=== PATIENT | female | born 1950 | race Caucasian/White ===

== ENCOUNTER → 2017-08-15 | Outpatient (CLI) | payer BC ==
--- NOTE | 2017-08-16 14:57 | MAMMOGRAPHY REPORT ---
BILATERAL DIGITAL SCREENING MAMMOGRAM TOMOSYNTHESIS WITH CAD: 08/15/2017 CLINICAL HISTORY: Routine screening. TECHNIQUE: Breast tomosynthesis in addition to standard 2D mammography was performed. Current study was also evaluated with a Computer Aided Detection (CAD) system. COMPARISON: Comparison is made to exams dated: 08/26/2016 mammogram, 08/12/2016 mammogram, 08/10/2015 mammogram, 08/05/2014 mammogram, 08/02/2013 mammogram, and 08/01/2012 mammogram - [facility]. BREAST COMPOSITION: There are scattered areas of fibroglandular density in both breasts. FINDINGS: A lobulated mass in the 8:00 middle one third of the right breast has decreased in size, cu rrently measuring 11 mm, previously documented to represent a cyst cluster on ultrasound. There is s table asymmetry in the medial right breast. Scattered benign round, punctate and rim calcifications in the breasts. Stable asymmetry in the lateral left breast. No new suspicious mass, architectural distortion or cluster of microcalcifications is seen. IMPRESSION: ACR BI-RADS CATEGORY 1: NEGATIVE There is no mammographic evidence of malignancy. A 1 year screening mammogram is recommended. The pa tient will receive written notification of the results. Approximately 10% of breast cancers are not detected with mammography. A negative mammographic report should not delay biopsy if a clinically suggestive mass is present. Violet Dietz M.D. ay/:08/15/2017 16:10:57 Street Car Inspector: Christiane MAHER(Desire)(Arielle), [facility] letter sent: Normal 1/2 BI-RADS Code: ACR BI-RADS Category 1: Negative
== END | disposition home or self-care (01) ==
LOC: C.MAMM 10:29
PROVIDERS: ATTEND Physician Assistant
DX: Z12.31 Encounter for screening mammogram for malignant neoplasm of breast (principal)

== ENCOUNTER 2022-12-14 12:33 | Inpatient (IN) ==
--- NOTE | 2022-12-14 13:09 | Emergency Department Note ---
Impression & Plan Bilateral pulmonary embolism, Elevated troponin ED Provider Note NAME: SALIMA WALKER AGE: 71 SEX: F : 1950 ARRIVES VIA: Walk-In INFORMANT: Patient ED PROVIDER(S): Chase Mcfarland DO CHIEF COMPLAINT: Shortness of breath HPI: Patient is a 71-year-old female who presents ER for shortness of breath referred in by PCP for chest x-ray which was concerning for pericardial effusion. Patient notes that she has chronic back pain has been following up. She wanted to follow-up with PCP for shortness of breath which has been present since Monday. On Monday she had a chest x-ray. She was sent in today. Denies any headache or change in vision. Does have shortness of breath which is only exertional. No belly pain, nausea, vomiting, or diarrhea. No dysuria, urgency, or frequency. She has chronic back pain which has been present for years. PAST MEDICAL HISTORY:See Below PAST SURGICAL HISTORY:See Below FAMILY HISTORY:See Below SOCIAL HISTORY:See Below HOME MEDICATIONS:See Below ALLERGIES:See Below VITALS:See Below PHYSICAL EXAMINATION: GENERAL: Sitting up in bed, alert, well appearing, well nourished, no distress, non-toxic EYE EXAM: normal conjunctiva. OROPHARYNX: mucous membranes are moist NECK: supple, no nuchal rigidity, no adenopathy, non-tender LUNGS: Clear to auscultation. Normal chest wall mechanics HEART: no murmurs, S1 normal and S2 normal ABDOMEN: abdomen soft, non-tender, normo-active bowel sounds, no masses, no rebound or guarding. UPPER EXTREMITIES: upper extremities are grossly normal. LOWER EXTREMITIES: No pitting edema. Calves are equal bilateral NEURO EXAM: Normal sensorium, cranial nerves II-XII grossly intact, normal speech, no gross weakness of arms, no gross weakness of legs. MEDICAL DECISION MAKING: Patient is a 71-year-old female who presents ER for above-stated complaint. IV was established blood work was obtained. External records were reviewed. Labs show no significant leukocytosis or anemia. INR unremarkable. D-dimer was elevated at 4000. BMP along with LFTs bilirubin and lipase was unremarkable. Troponin was elevated at 564. CT angio of the chest shows bilateral PEs. Patient was updated at bedside. She has no other bleeding risk factors. Discussed the risk and benefits of heparin. Did order heparin. Discussed case with Dr. Scotty Rawls for further evaluation management and treatment. Patient was admitted for further work-up. She was monitored closely. Triage Nursing notes reviewed. Limited review of prior medical records performed Vital Signs: reviewed and remarkable for no significant abnormalities Differential diagnosis: Differential diagnoses includes but is not limited to pneumonia, bronchitis, COPD/Asthma exacerbation, pneumothorax, pulmonary embolism, congestive heart failure, acute coronary syndrome ER treatment provided: See below Diagnostics interpreted by me include EKG and cardiac monitoring as listed below: -Cardiac Monitoring: An order was placed for continuous cardiac monitoring. The monitor shows a rate of 72 with sinus rhythm. -ECG: Sinus rhythm rate 83 Left axis T wave inversions in V3 through V5 Inferior Q waves QTc 462 -Laboratory studies:Interpreted by me as stated above in MDM and shown below. Imaging studies: Xrays: As interpreted by me: Portable AP upright 1 view of the chest shows no pneumonia CTs show: CT angio of the chest per my read shows bilateral PEs Consultation(s): Discussed with Dr. Scotty Rawls for further evaluation management Procedures:none Critical Care: I have personally spent 32 minutes of critical care time in the direct management of this patient. This includes bedside care, interpretation of diagnostic studies, and testing, discussion with consultants, patient, and family members, and other required patient management activities. This 32 minutes is in excess of all separately billable procedures. Past Med/Surg History Medical History (Updated 12/14/22 @ 16:43 by Scotty Rawls MD) Chronic back pain Hypertension Morbid obesity with BMI of 50.0-59.9, adult Surgical History (Updated 11/23/22 @ 09:22 by Lindy Paredes PA-C) H/O: hysterectomy History of cholecystectomy Social History Smoking Status: Never smoker Preferred Language: Bots[place] Feels Safe at Home: Yes Allergies Allergies Allergy/AdvReac Type Severity Reaction Status Date / Time shellfish derived AdvReac Intermediate Sneezing Verified 12/14/22 15:31 Home Meds Home Medications Medication Instructions Recorded Confirmed atorvastatin 20 mg tablet 20 mg PO QPM 11/23/22 12/14/22 calcium carbonate 500 mg-vitamin 1 tab PO BID 11/23/22 12/14/22 D3 15 mcg (600 unit) tablet (Os-Lam 500 + D3) furosemide 40 mg tablet (Lasix) 40 mg PO QAM 11/23/22 12/14/22 lisinopril 5 mg tablet 5 mg PO QAM 11/23/22 12/14/22 potassium chloride 10 mEq 10 meq PO QAM 11/23/22 12/14/22 tablet,extended release ibuprofen 200 mg tablet 400 - 600 mg PO Q6H PRN Pain 12/14/22 12/14/22 Results & Data (ED) Vital Signs Vital Signs - 24 hr 12/14/22 12:35 12/14/22 13:00 12/14/22 13:00 Temperature 36.6 C Temperature Source Temporal Artery Scan Pulse Rate Pulse Rate [Apical] 70 Pulse Rate from SpO2 Sensor Respiratory Rate 15 Respiratory Effort / Characteristics Non-Labored Spontaneous Respiratory Depth Normal Normal Respiratory Pattern Regular Regular Blood Pressure Blood Pressure [Left Arm] 129/93 Blood Pressure Mean Blood Pressure Mean [Left Arm] 105 Pulse Oximetry 91 Oxygen Delivery Method Room Air Room Air Oxygen Flow Rate Sepsis Recent Fever Within 48 Hours No Sepsis New/Unexplained Change in Mental Status N/A Sepsis Action Taken by Nursing No Action Required Oxygen Flow Rate - Titration Pulse Oximetry Post Tiitration 12/14/22 13:00 12/14/22 13:09 12/14/22 13:20 Temperature Temperature Source Pulse Rate 77 Pulse Rate [Apical] Pulse Rate from SpO2 Sensor Respiratory Rate Respiratory Effort / Characteristics Respiratory Depth Respiratory Pattern Blood Pressure Blood Pressure [Left Arm] Blood Pressure Mean Blood Pressure Mean [Left Arm] Pulse Oximetry 91 95 Oxygen Delivery Method Room Air Nasal Cannula Oxygen Flow Rate 0 2 Sepsis Recent Fever Within 48 Hours Sepsis New/Unexplained Change in Mental Status Sepsis Action Taken by Nursing Oxygen Flow Rate - Titration 2 Pulse Oximetry Post Tiitration 95 12/14/22 13:06 12/14/22 13:10 12/14/22 13:20 Temperature Temperature Source Pulse Rate 75 72 Pulse Rate [Apical] Pulse Rate from SpO2 Sensor 81 76 70 Respiratory Rate 13 13 12 Respiratory Effort / Characteristics Respiratory Depth Respiratory Pattern Blood Pressure Blood Pressure [Left Arm] Blood Pressure Mean Blood Pressure Mean [Left Arm] Pulse Oximetry 89 L 95 95 Oxygen Delivery Method Room Air Nasal Cannula Oxygen Flow Rate 2 Sepsis Recent Fever Within 48 Hours Sepsis New/Unexplained Change in Mental Status Sepsis Action Taken by Nursing Oxygen Flow Rate - Titration Pulse Oximetry Post Tiitration 12/14/22 13:30 12/14/22 13:40 12/14/22 13:50 Temperature Temperature Source Pulse Rate 71 70 74 Pulse Rate [Apical] Pulse Rate from SpO2 Sensor 72 81 74 Respiratory Rate 17 17 15 Respiratory Effort / Characteristics Respiratory Depth Respiratory Pattern Blood Pressure Blood Pressure [Left Arm] Blood Pressure Mean Blood Pressure Mean [Left Arm] Pulse Oximetry 93 93 94 Oxygen Delivery Method Room Air Oxygen Flow Rate Sepsis Recent Fever Within 48 Hours Sepsis New/Unexplained Change in Mental Status Sepsis Action Taken by Nursing Oxygen Flow Rate - Titration Pulse Oximetry Post Tiitration 12/14/22 14:00 12/14/22 14:10 12/14/22 14:20 Temperature Temperature Source Pulse Rate 72 73 71 Pulse Rate [Apical] Pulse Rate from SpO2 Sensor 73 75 76 Respiratory Rate 13 19 14 Respiratory Effort / Characteristics Respiratory Depth Respiratory Pattern Blood Pressure Blood Pressure [Left Arm] Blood Pressure Mean Blood Pressure Mean [Left Arm] Pulse Oximetry 94 92 94 Oxygen Delivery Method Oxygen Flow Rate Sepsis Recent Fever Within 48 Hours Sepsis New/Unexplained Change in Mental Status Sepsis Action Taken by Nursing Oxygen Flow Rate - Titration Pulse Oximetry Post Tiitration 12/14/22 14:30 12/14/22 14:30 12/14/22 14:57 Temperature Temperature Source Pulse Rate 107 H 0 L Pulse Rate [Apical] Pulse Rate from SpO2 Sensor 84 Respiratory Rate 16 18 Respiratory Effort / Characteristics Respiratory Depth Respiratory Pattern Blood Pressure 126/93 Blood Pressure [Left Arm] Blood Pressure Mean 104 Blood Pressure Mean [Left Arm] Pulse Oximetry 94 Oxygen Delivery Method Nasal Cannula Oxygen Flow Rate 2 Sepsis Recent Fever Within 48 Hours Sepsis New/Unexplained Change in Mental Status Sepsis Action Taken by Nursing Oxygen Flow Rate - Titration Pulse Oximetry Post Tiitration 12/14/22 15:00 12/14/22 15:00 Temperature Temperature Source Pulse Rate 62 Pulse Rate [Apical] Pulse Rate from SpO2 Sensor 82 Respiratory Rate 17 Respiratory Effort / Characteristics Respiratory Depth Respiratory Pattern Blood Pressure 121/80 Blood Pressure [Left Arm] Blood Pressure Mean 93 Blood Pressure Mean [Left Arm] Pulse Oximetry 95 Oxygen Delivery Method Nasal Cannula Oxygen Flow Rate 2 Sepsis Recent Fever Within 48 Hours Sepsis New/Unexplained Change in Mental Status Sepsis Action Taken by Nursing Oxygen Flow Rate - Titration Pulse Oximetry Post Tiitration Laboratory Data 12/14/22 12:50 12/14/22 12:50 Lab Results 12/14/22 12/14/22 12/14/22 Range/Units 12:50 12:50 12:50 WBC 9.72 (4.8-10.8) K/ul RBC 4.70 (4.20-5.40) M/uL Hgb 14.9 (12.0-16.0) g/dl Hct 43.4 (37.0-47.0) % MCV 92.3 (80.0-100.0) fL MCH 31.7 (25.0-34.0) pg MCHC 34.3 (32.0-36.0) g/dL RDW Std Deviation 43.3 (36.4-46.3) fL RDW Coeff of Megan 12.7 (11.5-14.5) % Plt Count 217 (130-400) K/uL MPV 10.7 (9.4-12.4) fL Immature Gran % (Auto) 0.4 % Neut % (Auto) 64.5 % Lymph % (Auto) 28.3 % Ponce % (Auto) 5.0 % Eos % (Auto) 1.2 % Baso % (Auto) 0.6 % Neut # (Auto) 6.26 (1.40-6.50) K/uL Lymph # (Auto) 2.75 (1.2-3.4) K/uL Ponce # (Auto) 0.49 (0.11-0.59) K/uL Eos # (Auto) 0.12 (0-0.50) K/uL Baso # (Auto) 0.06 (0-0.2) K/uL Immature Gran # (Auto) 0.04 (0.01-0.20) K/uL PT (9.0-12.0) Seconds INR (0.9-1.1) APTT (21.0-31.0) Seconds PTT Ratio D-Dimer 4380 H* (0-500) ug/L FEU Sodium 139 (136-145) mmol/L Potassium 4.0 (3.5-5.1) mmol/L Chloride 104 (98-107) mmol/L Carbon Dioxide 27 (21-32) mmol/L Anion Gap 8 (3-11) BUN 18 (6-23) mg/dl Creatinine 1.00 (0.6-1.2) mg/dl Est Cr Clr Drug Dosing 75.3 ml/min Est GFR ( Amer) 64.7 ml/min Est GFR (Non-Af Amer) 55.8 ml/min BUN/Creatinine Ratio 18.0 (10-20) Glucose 104 H (70-99(Fasting)) mg/dl Calcium 9.6 (8.6-10.3) mg/dl Total Bilirubin 0.9 (0.2-1.0) mg/dl AST 25 (13-39) U/L ALT 29 (7-52) U/L Alkaline Phosphatase 67 (34-104) U/L Troponin I High Sens 564.2 H* (0-14) pg/ml Total Protein 7.0 (6.0-8.3) gm/dl Albumin 4.3 (3.4-5.0) gm/dl Globulin 2.7 (2.5-4.0) gm/dl Albumin/Globulin Ratio 1.6 (0.9-2) Lipase 18 (11-82) U/L 12/14/22 12/14/22 Range/Units 12:50 15:21 WBC (4.8-10.8) K/ul RBC (4.20-5.40) M/uL Hgb (12.0-16.0) g/dl Hct (37.0-47.0) % MCV (80.0-100.0) fL MCH (25.0-34.0) pg MCHC (32.0-36.0) g/dL RDW Std Deviation (36.4-46.3) fL RDW Coeff of Megan (11.5-14.5) % Plt Count (130-400) K/uL MPV (9.4-12.4) fL Immature Gran % (Auto) % Neut % (Auto) % Lymph % (Auto) % Ponce % (Auto) % Eos % (Auto) % Baso % (Auto) % Neut # (Auto) (1.40-6.50) K/uL Lymph # (Auto) (1.2-3.4) K/uL Ponce # (Auto) (0.11-0.59) K/uL Eos # (Auto) (0-0.50) K/uL Baso # (Auto) (0-0.2) K/uL Immature Gran # (Auto) (0.01-0.20) K/uL PT 10.6 (9.0-12.0) Seconds INR 1.0 (0.9-1.1) APTT 25.9 (21.0-31.0) Seconds PTT Ratio 0.9 D-Dimer (0-500) ug/L FEU Sodium (136-145) mmol/L Potassium (3.5-5.1) mmol/L Chloride (98-107) mmol/L Carbon Dioxide (21-32) mmol/L Anion Gap (3-11) BUN (6-23) mg/dl Creatinine (0.6-1.2) mg/dl Est Cr Clr Drug Dosing ml/min Est GFR ( Amer) ml/min Est GFR (Non-Af Amer) ml/min BUN/Creatinine Ratio (10-20) Glucose (70-99(Fasting)) mg/dl Calcium (8.6-10.3) mg/dl Total Bilirubin (0.2-1.0) mg/dl AST (13-39) U/L ALT (7-52) U/L Alkaline Phosphatase (34-104) U/L Troponin I High Sens (0-14) pg/ml Total Protein (6.0-8.3) gm/dl Albumin (3.4-5.0) gm/dl Globulin (2.5-4.0) gm/dl Albumin/Globulin Ratio (0.9-2) Lipase (11-82) U/L Administered Medications Heparin Sodium/Dextrose (Heparin Sodium/Dextrose) 25,000 units in 500 mls @ 34 mls/hr IV .[id number] [facility]; Protocol Stop: 01/13/23 15:29 Last Admin: 12/14/22 16:47 Dose: 1,700 units/hr, 34 mls/hr Documented By: OUSMANE Co-signed By: Discontinued Medications Aspirin (Aspirin Chew 324 Mg) 324 mg PO NOW STA Stop: 12/14/22 14:18 Last Admin: 12/14/22 14:29 Dose: 324 mg Documented By: OUSMANE Heparin Sodium (Porcine) (Heparin Sod (Porcine) 1000 Unit/Ml) 8,000 units IV NOW ONE Stop: 12/14/22 15:19 Last Admin: 12/14/22 16:49 Dose: 8,000 units Documented By: OUSMANE Co-signed By: PLACIDO Ioversol (Optiray 320 500ml) 115 ml IV ONCE ONE Stop: 12/14/22 14:51 Last Admin: 12/14/22 14:50 Dose: 115 ml Documented By: HUMZA Methylprednisolone (Methylprednisolone 125 Mg/2 Ml Vial) 125 mg IV NOW STA Stop: 12/14/22 14:19 Last Admin: 12/14/22 14:30 Dose: 125 mg Documented By: OUSMANE Imaging Data Radiologist's Impression: Chest X-Ray 12/14/22 13:08 SINGLE VIEW CHEST CLINICAL HISTORY: Atypical chest pain FINDINGS: An AP, portable, upright chest radiograph is obtained. No prior studies are available for comparison at the time of dictation. The cardiomediastinal silhouette is top normal for projection. The lungs and pleural spaces are clear. No pneumothorax is seen. The skeletal structures are osteopenic. The bony thorax is grossly intact. IMPRESSION: No acute cardiopulmonary abnormality is identified. ACT 112: Negative or not required by law. Electronically signed by: Rishi Gunter M.D. 12/14/2022 1:44 PM Chest CTA 12/14/22 14:17 CT ANGIOGRAPHY OF THE CHEST, PULMONARY EMBOLUS PROTOCOL CLINICAL HISTORY: +dd and troponin. Shortness of breath. COMPARISON STUDY: Chest radiograph performed earlier today. TECHNIQUE: Following IV administration of 115 mL of Optiray, helical axial images of the chest were obtained utilizing the pulmonary embolus protocol. Maximal intensity projections and sagittal and coronal reformats were viewed on an independent 3D workstation. IV contrast was administered without complication. Automated exposure control was utilized for the study. A dose lowering technique was utilized adhering to the principles of ALARA. CT DOSE: 907.48 mGy.cm FINDINGS: There are extensive bilateral pulmonary emboli, including emboli within the right and left pulmonary arteries. Emboli within the right pulmonary artery are nearly occlusive. Additional lobar, segmental and subsegmental pulmonary emboli within the lungs are present. There is no saddle pulmonary embolus. There is dilatation of the right heart chambers with straightening of the interventricular septum. The heart is mildly enlarged. There is no pericardial effusion. No pulmonary infarct is present. Lungs are suboptimally assessed due to respiratory motion. Note is made of a round 1.2 x 1.2 cm anterior mediastinal nodule. Upper abdomen is unremarkable. Doppler surgically absent. There is a probable sebaceous cyst within the back. IMPRESSION: 1. Extensive bilateral pulmonary emboli, as detailed above. CT findings suggestive of associated right heart strain. No pulmonary infarct. Findings discussed with Dr. Mcfarland at time of dictation. 2. 1.2 cm intermediate nodule. This may represent a mildly enlarged lymph node. A small anterior mediastinal mass could appear similar. This is not highly suspicious but is indeterminate and a follow-up chest CT in 6 months to ensure stability is recommended. ACT 112: Positive. There are findings on this exam that require communication between the performing entity and the patient following Patient Test Result Information Act ([place] Act 112) guidelines. Electronically signed by: Buzz Schreiber M.D. 12/14/2022 3:22 PM Discharge Plan Visit Data Chief Complaint: Shortness of Breath/Dyspnea Stated Complaint: SOB, LAB WORK ABNORMAL, RETAINING FLUID ED Provider: Chase Mcfarland Discharge Problem: Bilateral pulmonary embolism, Elevated troponin Forms Stand Alone Forms: [facility] [employer] 2000 Prescriptions Prescriptions: No Action furosemide [Lasix] 40 mg tablet 40 mg PO QAM potassium chloride 10 mEq tablet extended release 10 meq PO QAM calcium carbonate-vitamin D3 [Os-Lam 500 + D3] 500 mg-15 mcg (600 unit) tablet 1 tab PO BID lisinopril 5 mg tablet 5 mg PO QAM atorvastatin 20 mg tablet 20 mg PO QPM ibuprofen 200 mg Tablet 400 - 600 mg PO Q6H PRN (Reason: Pain) Referrals Referrals: Mann Moon, [facility] [Primary Care Provider] -
[2022-12-14 13:44] LABS: Basophils # (auto) 0.06 K/uL (0-0.2); Basophils % (auto) 0.6 %; Eosinophils # (auto) 0.12 K/uL (0-0.50); Eosinophils % (auto) 1.2 %; Hematocrit (blood only) 43.4 % (37.0-47.0); Hemoglobin 14.9 g/dl (12.0-16.0); Immature Granulocytes # (auto) 0.04 K/uL (0.01-0.20); Immature Granulocytes % (auto) 0.4 %; Lymphocytes # (auto) 2.75 K/uL (1.2-3.4); Lymphocytes % (auto) 28.3 %; Mean Corpuscular Hemoglobin 31.7 pg (25.0-34.0); Mean Corpuscular Hgb Conc 34.3 g/dL (32.0-36.0); Mean Corpuscular Volume 92.3 fL (80.0-100.0); Mean Platelet Volume 10.7 fL (9.4-12.4); Monocytes # (auto) 0.49 K/uL (0.11-0.59); Neutrophils # (auto) 6.26 K/uL (1.40-6.50); Neutrophils % (auto) 64.5 %; Platelet Count 217 K/uL (130-400); RDW Coefficient of Variation 12.7 % (11.5-14.5); RDW Standard Deviation 43.3 fL (36.4-46.3); White Blood Count 9.72 K/ul (4.8-10.8)
--- NOTE | 2022-12-14 13:45 | XRay Report ---
SINGLE VIEW CHEST CLINICAL HISTORY: Atypical chest pain FINDINGS: An AP, portable, upright chest radiograph is obtained. No prior studies are available for c omparison at the time of dictation. The cardiomediastinal silhouette is top normal for projection. Th e lungs and pleural spaces are clear. No pneumothorax is seen. The skeletal structures are osteopenic . The bony thorax is grossly intact. IMPRESSION: No acute cardiopulmonary abnormality is identified. ACT 112: Negative or not required by law. Electronically signed by: Rishi Gunter M.D. 12/14/2022 1:44 PM
[2022-12-14 14:05] LABS: Albumin Globulin Ratio 1.6 (0.9-2); Albumin Level 4.3 gm/dl (3.4-5.0); Bilirubin,Total 0.9 mg/dl (0.2-1.0); Calcium 9.6 mg/dl (8.6-10.3); Creatinine Clr Calc Pharmacy 75.3 ml/min; Est GFR (African American) 64.7 ml/min; Est GFR (Non-African American) 55.8 ml/min; Globulin 2.7 gm/dl (2.5-4.0)
[2022-12-14 14:09] LABS: D Dimer 4380 ug/L FEU (0-500)
[2022-12-14 14:12] LABS: Troponin I High Sensitivity 564.2 pg/ml (0-14)
[2022-12-14] MEDS ORDERED: ASPIRIN CHEW 324 MG PO STA (14:17)
[2022-12-14] MEDS ORDERED: methylPREDNISolone 125 MG/2 ML VIAL IV STA (14:18)
[2022-12-14] MEDS ORDERED: OPTIRAY 320 500ml IV ONE (14:50)
[2022-12-14] MEDS ORDERED: Heparin IV Adult Wt-Based Standard WITH Bolus Protocol IV STA (15:03)
--- NOTE | 2022-12-14 15:12 | Electrocardiogram Report ---
Test Reason : Blood Pressure : / mmHG Vent. Rate : 083 BPM Atrial Rate : 083 BPM P-R Int : 164 ms QRS Dur : 086 ms QT Int : 394 ms P-R-T Axes : 000 -25 003 degrees QTc Int : 462 ms Normal sinus rhythm Low voltage QRS Inferior infarct , age undetermined Cannot rule out Anterior infarct , age undetermined Abnormal ECG No previous ECGs available Confirmed by Deyvi Gaffney ([id number]) on 12/14/2022 3:12:23 PM Referred By: Confirmed By:Deyvi Gaffney
[2022-12-14] MEDS ORDERED: Heparin IV Adult Wt-Based Standard WITH Bolus Protocol IV SCH (15:15)
[2022-12-14] MEDS ORDERED: HEPARIN SOD (PORCINE) 1000 UNIT/ML IV ONE ×2 (15:18)
--- NOTE | 2022-12-14 15:23 | CT Scan Report ---
CT ANGIOGRAPHY OF THE CHEST, PULMONARY EMBOLUS PROTOCOL CLINICAL HISTORY: +dd and troponin. Shortness of breath. COMPARISON STUDY: Chest radiograph performed earlier today. TECHNIQUE: Following IV administration of 115 mL of Optiray, helical axial images of the chest were o btained utilizing the pulmonary embolus protocol. Maximal intensity projections and sagittal and cor onal reformats were viewed on an independent 3D workstation. IV contrast was administered without co mplication. Automated exposure control was utilized for the study. A dose lowering technique was ut ilized adhering to the principles of ALARA. CT DOSE: 907.48 mGy.cm FINDINGS: There are extensive bilateral pulmonary emboli, including emboli within the right and left pulmonary arteries. Emboli within the right pulmonary artery are nearly occlusive. Additional lobar, segmental and subsegmental pulmonary emboli within the lungs are present. There is no saddle pulmona ry embolus. There is dilatation of the right heart chambers with straightening of the interventricula r septum. The heart is mildly enlarged. There is no pericardial effusion. No pulmonary infarct is pre sent. Lungs are suboptimally assessed due to respiratory motion. Note is made of a round 1.2 x 1.2 cm anterior mediastinal nodule. Upper abdomen is unremarkable. Doppler surgically absent. There is a pr obable sebaceous cyst within the back. IMPRESSION: 1. Extensive bilateral pulmonary emboli, as detailed above. CT findings suggestive of associated righ t heart strain. No pulmonary infarct. Findings discussed with Dr. Mcfarland at time of dictation. 2. 1.2 cm intermediate nodule. This may represent a mildly enlarged lymph node. A small anterior medi astinal mass could appear similar. This is not highly suspicious but is indeterminate and a follow-up chest CT in 6 months to ensure stability is recommended. ACT 112: Positive. There are findings on this exam that require communication between the performing entity and the patient following Patient Test Result Information Act ([place] Act 112) guidelines. Electronically signed by: Buzz Schreiber M.D. 12/14/2022 3:22 PM
[2022-12-14 15:32] LABS: Partial Thromboplastin Ratio 0.9; Partial Thromboplastin Time 25.9 Seconds (21.0-31.0)
--- NOTE | 2022-12-14 16:22 | History & Physical Report ---
Date of Service December 14, 2022 Assessment & Plan (1) Bilateral pulmonary embolism: Plan: PESI score 93, intermediate risk Unprovoked IV heparin standard with bolus US venous doppler b/l to assess cause (2) Abnormal chest CT: Plan: 1.2 cm intermediate nodule. Follow up CT in 6 months recommended. (3) Elevated troponin: Plan: Suspect heart strain secondary to pulmonary emboli Trend overnight TTE (4) Hyperlipidemia: Plan: Continue atorvastatin (5) Hypertension: Plan: Hold lisinopril and furosemide pending stability (6) Chronic back pain: Plan VTE Prophylaxis - heparin IV Diet - regular Disposition - admit to PCU Admission and Anticipated Discharge Date Admission Date: December 14, 2022 History of Present Illness Chief Complaint: Shortness of breath Primary Care Provider: Mann Moon Tangela Higginbotham is a 71 year old female who presents to the ER with shortness of breath. Symptom of shortness of breath on exertion started on Monday (2 days previously), first noticed when she got up to walk to the bathroom. Not getting any better or worse since then. Outpatient CXR was concerning for pericardia effusion therefore she was sent to the ER for further evaluation. No baseline oxygen. No leg pain. No long haul flights or car journeys. No recent surgeries. No chest pain, presyncope or syncope. No personal or family history of blood clots. CT for PE in the ER was concerning for extensive bilateral pulmonary emboli. She was started on IV heparin and referred to medicine for admission and ongoing management of this. Allergies Allergy/AdvReac Type Severity Reaction Status Date / Time shellfish derived AdvReac Intermediate Sneezing Verified 12/14/22 15:31 Home Medications Medication Instructions Recorded Confirmed Type atorvastatin 20 mg tablet 20 mg PO QPM 11/23/22 12/14/22 History calcium carbonate 500 mg-vitamin 1 tab PO BID 11/23/22 12/14/22 History D3 15 mcg (600 unit) tablet (Os-Lam 500 + D3) furosemide 40 mg tablet (Lasix) 40 mg PO QAM 11/23/22 12/14/22 History lisinopril 5 mg tablet 5 mg PO QAM 11/23/22 12/14/22 History potassium chloride 10 mEq 10 meq PO QAM 11/23/22 12/14/22 History tablet,extended release ibuprofen 200 mg tablet 400 - 600 mg PO Q6H PRN Pain 12/14/22 12/14/22 History Past Med/Surg History Medical History Chronic back pain Hyperlipidemia Hypertension Morbid obesity with BMI of 50.0-59.9, adult Surgical History H/O: hysterectomy History of cholecystectomy Social History Smoking Status: Former smoker Do You Dip or Chew Tobacco: No; Hx Alcohol Use: No Hx Substance Use: No Preferred Language: Marshallese Communication Ability: Effective Fashion Consultant Required: No Beliefs That Will Affect Care: None Current Living Situation: Spouse Feels Safe at Home: Yes Safety Concerns: Feels Safe At This Time Assistive Devices: Cane and Glasses Review of Systems Review of Systems: All systems reviewed & are unremarkable except as noted in HPI & below Physical Exam Constitutional: well developed; + not well nourished and no acute distress Eyes: + anicteric sclerae; normal pupil size ENMT: external ear and nose normal, oropharynx normal Neck: trachea midline, no thyromegaly Respiratory: normal respiratory effort; no respiratory distress Auscultation: lungs clear to auscultation bilaterally; breath sounds present, no diminished lung sounds, no crackles, no rales, no rhonchi and no wheezes Cardiovascular: Rate/Rhythm: regular rate and regular rhythm Heart Sounds: no murmur Extremities: normal capillary refill and + pedal edema (1+ b/l equal); no calf tenderness Gastrointestinal (Abdomen): normal bowel sounds, soft, nontender, no hepatosplenomegaly Musculoskeletal: no cyanosis or clubbing, extremities motor strength 5/5 Skin: no rashes, warm and dry Neurologic: moves all extremities and awake; not confused Psychiatric: A+Ox3, euthymic affect Results & Data Results & Data Vital Signs (Past 12 Hours) Vital Signs Temp Pulse Pulse Resp BP BP Pulse Ox 12/14/22 15:00 62 17 95 12/14/22 15:00 121/80 12/14/22 14:57 0 L 18 12/14/22 14:30 107 H 16 94 12/14/22 14:30 126/93 12/14/22 14:20 71 14 94 12/14/22 14:10 73 19 92 12/14/22 14:00 72 13 94 12/14/22 13:50 74 15 94 12/14/22 13:40 70 17 93 12/14/22 13:30 71 17 93 12/14/22 13:20 72 12 95 12/14/22 13:10 75 13 95 12/14/22 13:06 13 89 L 12/14/22 13:20 77 12/14/22 13:09 95 12/14/22 13:00 91 12/14/22 13:00 12/14/22 13:00 70 15 129/93 91 12/14/22 12:35 36.6 C O2 Del Method O2 Flow Rate 12/14/22 15:00 Nasal Cannula 2 12/14/22 15:00 12/14/22 14:57 12/14/22 14:30 Nasal Cannula 2 12/14/22 14:30 12/14/22 14:20 12/14/22 14:10 12/14/22 14:00 12/14/22 13:50 Room Air 12/14/22 13:40 12/14/22 13:30 12/14/22 13:20 Nasal Cannula 2 12/14/22 13:10 12/14/22 13:06 Room Air 12/14/22 13:20 12/14/22 13:09 Nasal Cannula 2 12/14/22 13:00 Room Air 0 12/14/22 13:00 Room Air 12/14/22 13:00 Room Air 12/14/22 12:35 Laboratory Results Abnormal lab results 12/14/22 12/14/22 Range/Units 12:50 12:50 D-Dimer 4380 H* (0-500) ug/L FEU Glucose 104 H (70-99(Fasting)) mg/dl Troponin I High Sens 564.2 H* (0-14) pg/ml Diagnostic Findings SINGLE VIEW CHEST CLINICAL HISTORY: Atypical chest pain FINDINGS: An AP, portable, upright chest radiograph is obtained. No prior studies are available for comparison at the time of dictation. The cardiomediastinal silhouette is top normal for projection. The lungs and pleural spaces are clear. No pneumothorax is seen. The skeletal structures are osteopenic. The bony thorax is grossly intact. IMPRESSION: No acute cardiopulmonary abnormality is identified. CT ANGIOGRAPHY OF THE CHEST, PULMONARY EMBOLUS PROTOCOL CLINICAL HISTORY: +dd and troponin. Shortness of breath. COMPARISON STUDY: Chest radiograph performed earlier today. TECHNIQUE: Following IV administration of 115 mL of Optiray, helical axial images of the chest were obtained utilizing the pulmonary embolus protocol. Maximal intensity projections and sagittal and coronal reformats were viewed on an independent 3D workstation. IV contrast was administered without complication. Automated exposure control was utilized for the study. A dose lowering technique was utilized adhering to the principles of ALARA. CT DOSE: 907.48 mGy.cm FINDINGS: There are extensive bilateral pulmonary emboli, including emboli within the right and left pulmonary arteries. Emboli within the right pulmonary artery are nearly occlusive. Additional lobar, segmental and subsegmental pulmonary emboli within the lungs are present. There is no saddle pulmonary embolus. There is dilatation of the right heart chambers with straightening of the interventricular septum. The heart is mildly enlarged. There is no pericardial effusion. No pulmonary infarct is present. Lungs are suboptimally assessed due to respiratory motion. Note is made of a round 1.2 x 1.2 cm anterior mediastinal nodule. Upper abdomen is unremarkable. Doppler surgically absent. There is a probable sebaceous cyst within the back. IMPRESSION: 1. Extensive bilateral pulmonary emboli, as detailed above. CT findings suggestive of associated right heart strain. No pulmonary infarct. Findings discussed with Dr. Mcfarland at time of dictation. 2. 1.2 cm intermediate nodule. This may represent a mildly enlarged lymph node. A small anterior mediastinal mass could appear similar. This is not highly suspicious but is indeterminate and a follow-up chest CT in 6 months to ensure stability is recommended. Medications Administered ER Medications Given: ASA 324mg PO Solu-medrol 125mg IV Heparin standard IV with bolus ECG Rate (beats per minute): 83 Rhythm: normal sinus Findings: no acute ischemic change Comparison ECG Date: no prior available Code Status & VTE Plan Code Status Full PG Care Time/CCT Total # of Minutes Spent Total Time Spent with Patient: Total time spent is greater than 50% in coordination of care (as documented) at patient's floor/unit and/or counseling patient: Coding Level of Care Code 18282 INT INP/OBS CARE 3/75MIN Diagnoses Bilateral pulmonary embolism I26.[address] R93.89 Elevated troponin R77.8 Hyperlipidemia E78.5 Hypertension I10 Chronic back pain M54.9; G89.29
[2022-12-14 16:33] LABS: Prothrombin Time 10.6 Seconds (9.0-12.0)
[2022-12-14] MEDS: HEPARIN SODIUM/DEXTROSE 25,000 UNITS/500 ML BAG IV SCH (16:47)
[2022-12-14] MEDS ORDERED: ACETAMINOPHEN 325 MG TAB PO PRN (21:10)
[2022-12-14] MEDS: CALCIUM CARBONATE 1250MG TAB PO SCH (21:29)
[2022-12-14] MEDS: ATORVASTATIN 20 MG TAB PO SCH (21:29)
[2022-12-14 23:39] LABS: Partial Thromboplastin Ratio 2.6
--- NOTE | 2022-12-15 00:15 | Ultrasound Report ---
Exam(s): US VENOUS BILATERAL LOWER EXTREMITIES EXAM: US Duplex Bilateral Lower Extremities Veins CLINICAL HISTORY: Reason for exam: bilateral leg swelling, PE ?DVT. TECHNIQUE: Real-time duplex ultrasound scan of the bilateral lower extremity veins integrating B-mode two-dimensional vascular structure, Doppler spectral analysis, color flow Doppler imaging and compression. COMPARISON: No relevant prior studies available. FINDINGS: Right deep veins: Unremarkable. No DVT in the right common femoral, femoral, proximal deep femoral or popliteal veins. The veins demonstrate normal color flow, are normally compressible, with normal phasic flow and/or augmentation response. Right superficial veins: Unremarkable. No thrombus in the visualized right great saphenous vein. Left deep veins: The left popliteal vein is noncompressible and filled with acute appearing clot consistent with DVT. Left superficial veins: Unremarkable. No thrombus in the visualized left great saphenous vein. Soft tissues: No acute findings. No popliteal cyst. IMPRESSION: The left popliteal vein is noncompressible and filled with acute appearing clot consistent with DVT. Communications: Call Doctor DVT acute, progressing Electronically signed by: Jose Teague MD 12/15/22 00:14 AM
[2022-12-15 06:19] LABS: Basophils # (auto) 0.01 K/uL (0-0.2); Basophils % (auto) 0.1 %; Hematocrit (blood only) 39.9 % (37.0-47.0); Hemoglobin 13.7 g/dl (12.0-16.0); Immature Granulocytes # (auto) 0.07 K/uL (0.01-0.20); Immature Granulocytes % (auto) 0.7 %; Lymphocytes % (auto) 9.8 %; Mean Corpuscular Hemoglobin 31.5 pg (25.0-34.0); Mean Corpuscular Hgb Conc 34.3 g/dL (32.0-36.0); Mean Corpuscular Volume 91.7 fL (80.0-100.0); Monocytes # (auto) 0.12 K/uL (0.11-0.59); Monocytes % (auto) 1.2 %; Neutrophils # (auto) 9.05 K/uL (1.40-6.50); Neutrophils % (auto) 88.2 %; Platelet Count 187 K/uL (130-400); RDW Coefficient of Variation 12.7 % (11.5-14.5); RDW Standard Deviation 42.5 fL (36.4-46.3); Red Blood Count 4.35 M/uL (4.20-5.40); White Blood Count 10.25 K/ul (4.8-10.8)
[2022-12-15 06:33] LABS: BUN Creatinine Ratio 22.4 (10-20); Calcium 9.3 mg/dl (8.6-10.3); Creatinine Clr Calc Pharmacy 72.2 ml/min; Est GFR (African American) 66.3 ml/min; Est GFR (Non-African American) 57.2 ml/min; Potassium 4.1 mmol/L (3.5-5.1)
[2022-12-15 07:50] LABS: Partial Thromboplastin Ratio 1.6
[2022-12-15 07:51] LABS: Partial Thromboplastin Time 44.8 Seconds (21.0-31.0)
--- NOTE | 2022-12-15 08:42 | Cardiology Consultation ---
Date of Consultation December 15, 2022 Assessment & Plan (1) Bilateral pulmonary embolism: (2) Elevated troponin: (3) Abnormal electrocardiogram: (4) Hyperlipidemia: (5) Hypertension: Plan 1. Pulmonary emboli: She does not seem to have any inciting factor, she has not been traveling, she has had no leg injury, she has been normally active (which is not terribly active in any case). Agree with current treatment. I would not expect that we would do any invasive evaluation this admission so it should be safe to convert her to oral agents. 2. Elevated troponin: Her troponin is quite elevated on presentation and dropped over 3 measurements. I cannot really explain this finding although I am concerned that it represents underlying coronary artery disease but not an acute myocardial infarction. It is more consistent with demand ischemia although there is no clear reason for her to have that (such as an arrhythmia, hypotension, etc.). Her blood pressure was somewhat elevated on presentation but not severely so. I do not want to evaluate it now, however I think we should in the near future. I do not think we need a cardiac catheterization but I would do a stress test. I do not want to do that right now and her symptoms do not suggest unstable angina. I will plan on doing a stress test in the near future but probably as an outpatient. I am going to repeat her troponin tomorrow to make sure it is a downward trend. 3. Abnormal electrocardiogram: Her electrocardiogram suggests an anterior and inferior microinfarction of indeterminate age, the echocardiogram does not support that. Perhaps it is a conduction abnormality giving this appearance. We should investigate with a stress test as noted above however. 4. Hyperlipidemia: She has a history of hyperlipidemia but does not have cholesterol measurements in our records. She tells me that she has been told that her cholesterol is well controlled. We may need to follow that up if she has coronary artery disease or ischemia, but I have not ordered lipids. 5. Hypertension: She has a history of hypertension which she tells me is well controlled and it does appear to be so. She was a little high on presentation but that is not surprising, subsequently her blood pressure has been good. History of Present Illness Reason for Consultation: Elevated troponin, abnormal electrocardiogram Attending Physician: Willem Alvarenga MD History of Present Illness This is a 71-year-old woman with no prior cardiovascular history to my knowledge although does have hyperlipidemia for which she is on atorvastatin 20 mg daily and she has a history of hypertension on lisinopril. She presented to the emergency room with shortness of breath on December 14, 2022. Her shortness of breath has been present for about 3 days, laboratory work was unremarkable however her D-dimer was markedly elevated and a CT angiogram showed bilateral pulmonary embolism. She was therefore started on intravenous heparin and venous Dopplers were consistent with a left popliteal vein thrombosis. Troponin measurements were performed and on presentation it was elevated at 564, about 40 minutes later it had dropped to 337 and this morning about 6-1/2 hours after the prior measurement her level is 296. Electrocardiography suggests a nonacute inferior myocardial infarction as well as a nonacute anterior myocardial infarction. She was in sinus rhythm. There were no prior tracings for comparison. On detailed questioning she does not have any symptoms to suggest angina. She has not had exertional chest discomfort, she does have exertional shortness of breath but she is very overweight and that has not changed recently until several days before presentation when it got worse. She has noticed some leg swelling and is on Lasix, that does not seem to have been particularly worse recently either. She does not seem to have any inciting factor to explain the pulmonary emboli and DVT, she has not traveled, she has not had leg injury, she has not been favoring 1 leg and although she is somewhat sedentary she has not decreased her exercise except in the last several days which probably relates to the pulmonary emboli. Allergies Allergy/AdvReac Type Severity Reaction Status Date / Time shellfish derived AdvReac Intermediate Sneezing Verified 12/14/22 15:31 Home Medications Medication Instructions Recorded Confirmed Type atorvastatin 20 mg tablet 20 mg PO QPM 11/23/22 12/14/22 History calcium carbonate 500 mg-vitamin 1 tab PO BID 11/23/22 12/14/22 History D3 15 mcg (600 unit) tablet (Os-Lam 500 + D3) furosemide 40 mg tablet (Lasix) 40 mg PO QAM 11/23/22 12/14/22 History lisinopril 5 mg tablet 5 mg PO QAM 11/23/22 12/14/22 History potassium chloride 10 mEq 10 meq PO QAM 11/23/22 12/14/22 History tablet,extended release ibuprofen 200 mg tablet 400 - 600 mg PO Q6H PRN Pain 12/14/22 12/14/22 History Patient History Medical History Chronic back pain Hyperlipidemia Hypertension Morbid obesity with BMI of 50.0-59.9, adult Surgical History H/O: hysterectomy History of cholecystectomy Social History Smoking Status: Former smoker Do You Dip or Chew Tobacco: No; Hx Alcohol Use: No Hx Substance Use: No Preferred Language: Welsh Communication Ability: Effective Formation Testing Operator Required: No Beliefs That Will Affect Care: None Current Living Situation: Spouse Feels Safe at Home: Yes Safety Concerns: Feels Safe At This Time Assistive Devices: Cane and Glasses Review of Systems Review of Systems: All systems reviewed & are unremarkable except as noted in HPI & below Physical Exam Physical Exam: Constitutional: Alert, cooperative and in no distress. She is very overweight. HEENT: Unremarkable Neck: No jugular venous distention, carotid pulses are normal and equal bilaterally without bruits. Pulmonary: Clear to auscultation bilaterally. Cardiac: Regular rhythm with no murmur, gallop or rub. Abdomen: Soft, nontender with normal bowel sounds. Extremities: Bilateral edema, it is really not pitting to a significant extent although her legs are quite heavy. Distal pulses intact. Neurologic: No focal findings. Skin: No rash, ecchymoses or petechiae. Results & Data Vital Signs (Past 12 Hours) Vital Signs Temp Pulse Pulse Resp BP Pulse Ox O2 Del Method 12/15/22 08:28 76 12/15/22 08:26 Nasal Cannula 12/15/22 07:57 36.6 C 74 18 122/81 92 Nasal Cannula 12/15/22 03:18 36.6 C 71 22 111/78 91 Nasal Cannula 12/15/22 00:42 100 H 12/14/22 23:55 36.7 C 96 H 22 112/75 92 Nasal Cannula 12/14/22 22:47 Nasal Cannula 12/14/22 21:00 36.7 C 80 22 150/78 H 92 Nasal Cannula O2 Flow Rate 12/15/22 08:28 12/15/22 08:26 2 12/15/22 07:57 2 12/15/22 03:18 2 12/15/22 00:42 12/14/22 23:55 2 12/14/22 22:47 2 12/14/22 21:00 2 Laboratory Results Cardiac Enzymes 12/14/22 12/15/22 12/15/22 Range/Units 12:50 00:32 07:03 AST 25 (13-39) U/L Troponin I High Sens 564.2 H* 337.6 H* D 296.6 H* (0-14) pg/ml Coagulation 12/14/22 12/14/22 12/14/22 Range/Units 12:50 15:21 22:34 PT 10.6 (9.0-12.0) Seconds APTT 25.9 73.0 H* (21.0-31.0) Seconds 12/15/22 Range/Units 05:44 PT (9.0-12.0) Seconds APTT 44.8 H* (21.0-31.0) Seconds CBC 12/14/22 12/15/22 Range/Units 12:50 05:44 WBC 9.72 10.25 (4.8-10.8) K/ul RBC 4.70 4.35 (4.20-5.40) M/uL Hgb 14.9 13.7 (12.0-16.0) g/dl Hct 43.4 39.9 (37.0-47.0) % Plt Count 217 187 (130-400) K/uL Neut # (Auto) 6.26 9.05 H (1.40-6.50) K/uL Lymph # (Auto) 2.75 1.00 L (1.2-3.4) K/uL Mccone # (Auto) 0.49 0.12 (0.11-0.59) K/uL Eos # (Auto) 0.12 0.00 (0-0.50) K/uL Baso # (Auto) 0.06 0.01 (0-0.2) K/uL Comprehensive Metabolic Panel 12/14/22 12/15/22 Range/Units 12:50 05:44 Sodium 139 135 L (136-145) mmol/L Potassium 4.0 4.1 (3.5-5.1) mmol/L Chloride 104 104 (98-107) mmol/L Carbon Dioxide 27 22 (21-32) mmol/L BUN 18 22 (6-23) mg/dl Creatinine 1.00 0.98 (0.6-1.2) mg/dl Glucose 104 H 199 H (70-99(Fasting)) mg/dl Calcium 9.6 9.3 (8.6-10.3) mg/dl AST 25 (13-39) U/L ALT 29 (7-52) U/L Alkaline Phosphatase 67 (34-104) U/L Total Protein 7.0 (6.0-8.3) gm/dl Albumin 4.3 (3.4-5.0) gm/dl Intake and Output 12/14/22 12/15/22 12/15/22 22:59 06:59 14:59 Intake Total 843.667 / 843.667 Balance 843.667 / 843.667 Intake: IV 243.667 / 243.667 Heparin Sodium/Dextrose 25,000 243.667 / 243.667 units In 500 ml @ 1,700 UNITS/ HR 34 mls/hr IV .[id number] TRUE Rx #:[id number] Oral 600 / 600 Other: # Unmeasured Voids 1 2 Weight 138.8 kg 138.1 kg Weight Measurement Method Built in [facility] Diagnostic Findings Telemetry: Sinus rhythm and sinus tachycardia, no other arrhythmia. Electrocardiogram today: Sinus rhythm, inferior and anterior myocardial infarction's, similar to prior. No acute changes. Echocardiogram: This was done this morning and I reviewed it but is not formally read as yet. There do not appear to be wall motion abnormalities on my interpretation, she probably has left ventricular hypertrophy. PG Care Time/CCT Total # of Minutes Spent Total Time Spent with Patient: Total time spent is greater than 50% in coordination of care (as documented) at patient's floor/unit and/or counseling patient: Coding Level of Care Code 18950 INT INP/OBS CARE 3/75MIN Diagnoses Bilateral pulmonary embolism I26.99 Elevated troponin R77.8 Abnormal electrocardiogram R94.31 Hyperlipidemia E78.5 Hyperlipidemia type: unspecified Hypertension I10 Hypertension type: primary hypertension (4) Hyperlipidemia Hyperlipidemia type: unspecified Qualified Code(s): E78.5 - Hyperlipidemia, unspecified (5) Hypertension Hypertension type: primary hypertension Qualified Code(s): I10 - Essential (primary) hypertension
[2022-12-15] MEDS: POTASSIUM CHLORIDE 10 MEQ TABCR PO SCH (10:12)
[2022-12-15] MEDS: HEPARIN SODIUM/DEXTROSE 25,000 UNITS/500 ML BAG IV SCH (10:13)
[2022-12-15] MEDS: CALCIUM CARBONATE 1250MG TAB PO SCH ×2 (10:13→21:26)
--- NOTE | 2022-12-15 14:15 | Hospitalist Progress Note ---
Date of Service December 15, 2022 Assessment & Plan (1) Bilateral pulmonary embolism: Plan: No acute distress. She remains on a heparin drip. Most likely provoked from left lower extremity DVT embolization. Eventual switch to oral Eliquis or Xarelto (2) Abnormal chest CT: Plan: 1.2 cm intermediate nodule. Follow up CT in 6 months recommended. (3) Elevated troponin: Plan: Suspect heart strain secondary to pulmonary emboli. Cardiology consultation appreciated. Cardiac echo is pending. Continue telemetry and medication management (4) Hyperlipidemia: Plan: Continue atorvastatin (5) Hypertension: Plan: Hold lisinopril and furosemide temporarily (6) Chronic back pain: Plan: Pain control measures. No intervention needed at this time (7) Left leg DVT: Plan: Currently on a heparin drip. Eventual switch to either oral Eliquis or Xarelto Plan VTE Prophylaxis - heparin IV currently Disposition -anticipate eventual discharge to home. She may need oxygen at home temporarily. Admission and Anticipated Discharge Date Admission Date: December 14, 2022 Subjective Alert and oriented. She denies chest discomfort. Troponin is elevated but trending down. EKGs are abnormal. Cardiac echo is pending. Cardiology consultation noted. She remains on a heparin drip which eventually will be converted to either Xarelto or Eliquis. Venous Doppler of the legs reveals evidence of left DVT. She remains on oxygen at 2 L/min. Review of Systems Review of Systems: Constitutional-no fever or chills ENT-no blurred vision, no double vision, no epistaxis, no sore throat Respiratory- dyspnea on exertion. No cough. No hemoptysis Cardiac-no palpitations, no chest pain, no syncope. She does have dyspnea on exertion GI-no nausea, vomiting, diarrhea, melena, hematochezia -no urinary retention, no urinary incontinence, no dysuria, no hematuria Musculoskeletal-no joint pain, no muscle tenderness Skin-no bruising, no rashes, no pruritus Neuro-no isolated weakness, no paresthesia, no weakness Psych-no depression, no anxiety Physical Exam Physical Exam: General-alert and oriented x3, no fevers, no chills. Obese HEENT-head atraumatic and normocephalic, pupils equal and reactive to light, extraocular muscles intact Neck-no lymphadenopathy or thyromegaly, trachea midline Chest-clear to auscultation percussion. No rales wheezing or rhonchi Cardiac-regular rate and rhythm, normal S1 and S2 Abdomen-normal bowel sounds, nontender, no hepatosplenomegaly Extremities-chronic appearing mild edema bilateral lower extremities Neuro-cranial nerves II through XII intact, motor and sensory function within normal limits, strength symmetrical , no focal deficits Psych-normal affect, normal mood Results & Data Results & Data Vital Signs (Past 12 Hours) Vital Signs Temp Pulse Pulse Resp BP Pulse Ox O2 Del Method 12/15/22 11:46 36.5 C 78 20 99/59 L 92 Nasal Cannula 12/15/22 08:28 76 12/15/22 08:26 Nasal Cannula 12/15/22 07:57 36.6 C 74 18 122/81 92 Nasal Cannula 12/15/22 03:18 36.6 C 71 22 111/78 91 Nasal Cannula O2 Flow Rate 12/15/22 11:46 2 12/15/22 08:28 12/15/22 08:26 2 12/15/22 07:57 2 12/15/22 03:18 2 Laboratory Results 12/15/22 05:44 12/15/22 05:44 PG Care Time/CCT Total # of Minutes Spent Total Time Spent with Patient: Total time spent is greater than 50% in coordination of care (as documented) at patient's floor/unit and/or counseling patient: Coding Level of Care Code 10426 SUB INP/OBS CARE 3/50MIN Diagnoses Bilateral pulmonary embolism I26.[address] R93.89 Elevated troponin R77.8 Hyperlipidemia E78.5 Hyperlipidemia type: unspecified Hypertension I10 Hypertension type: primary hypertension Chronic back pain M54.9; G89.29 Left leg DVT I82.402 (4) Hyperlipidemia Hyperlipidemia type: unspecified Qualified Code(s): E78.5 - Hyperlipidemia, unspecified (5) Hypertension Hypertension type: primary hypertension Qualified Code(s): I10 - Essential (primary) hypertension
--- NOTE | 2022-12-15 16:41 | XCELERA ---
[id number]
[2022-12-15] MEDS: ATORVASTATIN 20 MG TAB PO SCH (21:26)
[2022-12-16] MEDS: HEPARIN SODIUM/DEXTROSE 25,000 UNITS/500 ML BAG IV SCH ×3 (02:29→18:49)
[2022-12-16 07:41] LABS: Basophils # (auto) 0.06 K/uL (0-0.2); Basophils % (auto) 0.5 %; Eosinophils # (auto) 0.09 K/uL (0-0.50); Eosinophils % (auto) 0.8 %; Hematocrit (blood only) 40.4 % (37.0-47.0); Hemoglobin 13.3 g/dl (12.0-16.0); Immature Granulocytes # (auto) 0.07 K/uL (0.01-0.20); Immature Granulocytes % (auto) 0.6 %; Lymphocytes # (auto) 2.64 K/uL (1.2-3.4); Lymphocytes % (auto) 22.4 %; Mean Corpuscular Hemoglobin 31.7 pg (25.0-34.0); Mean Corpuscular Hgb Conc 32.9 g/dL (32.0-36.0); Mean Corpuscular Volume 96.2 fL (80.0-100.0); Mean Platelet Volume 10.8 fL (9.4-12.4); Monocytes # (auto) 0.68 K/uL (0.11-0.59); Monocytes % (auto) 5.8 %; Neutrophils # (auto) 8.25 K/uL (1.40-6.50); Neutrophils % (auto) 69.9 %; Platelet Count 181 K/uL (130-400); RDW Coefficient of Variation 13.2 % (11.5-14.5); RDW Standard Deviation 46.5 fL (36.4-46.3); White Blood Count 11.79 K/ul (4.8-10.8)
[2022-12-16 07:52] LABS: BUN Creatinine Ratio 21.9 (10-20); Calcium 9.5 mg/dl (8.6-10.3); Creatinine Clr Calc Pharmacy 61.2 ml/min; Est GFR (African American) 54.9 ml/min; Est GFR (Non-African American) 47.3 ml/min; Potassium 4.3 mmol/L (3.5-5.1)
[2022-12-16 08:00] LABS: Troponin I High Sensitivity 154.8 pg/ml (0-14)
[2022-12-16 08:14] LABS: Partial Thromboplastin Ratio 1.8
[2022-12-16 08:15] LABS: Partial Thromboplastin Time 50.4 Seconds (21.0-31.0)
[2022-12-16] MEDS: CALCIUM CARBONATE 1250MG TAB PO SCH ×3 (10:04→20:04)
[2022-12-16] MEDS: POTASSIUM CHLORIDE 10 MEQ TABCR PO SCH (10:04)
[2022-12-16] MEDS: lisinopril 5 MG TAB PO SCH (11:03)
[2022-12-16] MEDS: FUROSEMIDE 40 MG TAB PO SCH (11:03)
--- NOTE | 2022-12-16 14:28 | Hospitalist Progress Note ---
Date of Service December 16, 2022 Assessment & Plan (1) Bilateral pulmonary embolism: Plan: No acute distress. She remains on a heparin drip. Most likely provoked from left lower extremity DVT embolization. We will plan on switching to Xarelto at discharge tomorrow, december 17 (2) Abnormal chest CT: Plan: 1.2 cm intermediate nodule. Follow up CT in 6 months recommended. (3) Elevated troponin: Plan: Suspect heart strain secondary to pulmonary emboli. Cardiology consultation appreciated. Cardiac echo reveals normal left ventricular function with no regional wall motion abnormalities. Outpatient stress testing recommended. (4) Hyperlipidemia: Plan: Continue atorvastatin (5) Hypertension: Plan: Lisinopril has been restarted (6) Chronic back pain: Plan: Pain control measures. No intervention needed at this time (7) Left leg DVT: Plan: Currently on a heparin drip. We will switch to Xarelto at discharge (8) Acute respiratory failure with hypoxia: Plan: Due to pulmonary emboli. She is currently requiring 2 L oxygen per nasal cannula. If this cannot be weaned off prior to discharge, she may need home oxygen temporarily Plan VTE Prophylaxis - heparin IV currently Disposition -anticipate discharge to home tomorrow, december 17. She may need oxygen at home temporarily. Admission and Anticipated Discharge Date Admission Date: December 14, 2022 Subjective Alert and oriented. No acute distress. Cardiac echo reveals normal left ventricular function with no regional wall motion abnormalities. Troponins are downtrending. Cardiology recommends a stress test at a later date. Lisinopril and Lasix have been restarted. OT and PT assessments requested. Heparin drip will be converted to Xarelto at discharge, probably tomorrow, December 17 Review of Systems Review of Systems: Constitutional-no fever or chills ENT-no blurred vision, no double vision, no epistaxis, no sore throat Respiratory- dyspnea on exertion. No cough. No hemoptysis Cardiac-no palpitations, no chest pain, no syncope. She does have dyspnea on exertion GI-no nausea, vomiting, diarrhea, melena, hematochezia -no urinary retention, no urinary incontinence, no dysuria, no hematuria Musculoskeletal-no joint pain, no muscle tenderness Skin-no bruising, no rashes, no pruritus Neuro-no isolated weakness, no paresthesia, no weakness Psych-no depression, no anxiety Physical Exam Physical Exam: General-alert and oriented x3, no fevers, no chills. Obese HEENT-head atraumatic and normocephalic, pupils equal and reactive to light, extraocular muscles intact Neck-no lymphadenopathy or thyromegaly, trachea midline Chest-clear to auscultation percussion. No rales wheezing or rhonchi Cardiac-regular rate and rhythm, normal S1 and S2 Abdomen-normal bowel sounds, nontender, no hepatosplenomegaly Extremities-chronic appearing mild edema bilateral lower extremities Neuro-cranial nerves II through XII intact, motor and sensory function within normal limits, strength symmetrical , no focal deficits Psych-normal affect, normal mood Results & Data Results & Data Vital Signs (Past 12 Hours) Vital Signs Temp Pulse Pulse Resp BP Pulse Ox O2 Del Method 12/16/22 12:03 36.4 C L 81 19 127/70 95 Nasal Cannula 12/16/22 09:07 62 12/16/22 08:13 36.4 C L 71 17 135/80 95 Nasal Cannula 12/16/22 08:12 Nasal Cannula 12/16/22 08:12 Nasal Cannula 12/16/22 03:52 36.4 C L 74 18 122/70 95 Room Air O2 Flow Rate 12/16/22 12:03 2 12/16/22 09:07 12/16/22 08:13 2 12/16/22 08:12 12/16/22 08:12 2 12/16/22 03:52 Laboratory Results 12/16/22 07:09 12/16/22 07:09 PG Care Time/CCT Total # of Minutes Spent Total Time Spent with Patient: Total time spent is greater than 50% in coordination of care (as documented) at patient's floor/unit and/or counseling patient: Coding Level of Care Code 57568 SUB INP/OBS CARE 3/50MIN Diagnoses Bilateral pulmonary embolism I26.[address] R93.89 Elevated troponin R77.8 Hyperlipidemia E78.5 Hyperlipidemia type: unspecified Hypertension I10 Hypertension type: primary hypertension Chronic back pain M54.9; G89.29 Left leg DVT I82.402 Acute respiratory failure with hypoxia J96.01 (4) Hyperlipidemia Hyperlipidemia type: unspecified Qualified Code(s): E78.5 - Hyperlipidemia, unspecified (5) Hypertension Hypertension type: primary hypertension Qualified Code(s): I10 - Essential (primary) hypertension
--- NOTE | 2022-12-16 14:32 | Cardiology Progress Note ---
Date of Service December 16, 2022 Assessment & Plan (1) Bilateral pulmonary embolism: (2) Elevated troponin: (3) Abnormal electrocardiogram: (4) Hyperlipidemia: (5) Hypertension: Plan 1. Pulmonary emboli: She does not seem to have any inciting factor, she has not been traveling, she has had no leg injury, she has been normally active (which is not terribly active in any case). Agree with current treatment. I would not expect that we would do any invasive evaluation this admission so it should be safe to convert her to oral agents. 2. Elevated troponin: Her troponin is quite elevated on presentation and dropped gradually although still remains elevated. I cannot really explain this finding although I am concerned that it represents underlying coronary artery disease but not an acute myocardial infarction. It is more consistent with demand ischemia although there is no clear reason for her to have that (such as an arrhythmia, hypotension, etc.). Perhaps it is right ventricular strain, the echo does show dilated right ventricle. Her blood pressure was somewhat e levated on presentation but not severely so. I do not want to evaluate it now, however I think we should in the near future. I do not think we need a cardiac catheterization but I would do a stress test. I do not want to do that right now and her symptoms do not suggest unstable angina. I will plan on doing a stress test in the near future but probably as an outpatient. I will make those arrangements. 3. Abnormal electrocardiogram: Her electrocardiogram suggests an anterior and inferior myocardial infarction of indeterminate age, the echocardiogram does not support that. Perhaps it is a conduction abnormality giving this appearance. We should investigate with a stress test as noted above however. 4. Hyperlipidemia: She has a history of hyperlipidemia but does not have cholesterol measurements in our records. She tells me that she has been told that her cholesterol is well controlled. We may need to follow that up if she has coronary artery disease or ischemia, but I have not ordered lipids. 5. Hypertension: She has a history of hypertension which she tells me is well controlled and it does appear to be so. She was a little high on presentation but that is not surprising, subsequently her blood pressure has been good. Admission and Anticipated Discharge Date Admission Date: December 14, 2022 Subjective She is feeling fairly well, she has no symptoms at rest but still has some dyspnea on exertion with going to the bathroom. Continues to be absent of chest discomfort. Physical Exam Physical Exam: Constitutional: Alert, cooperative and in no distress. She is very overweight. HEENT: Unremarkable Neck: No jugular venous distention, carotid pulses are normal and equal bilaterally without bruits. Pulmonary: Clear to auscultation bilaterally. Cardiac: Regular rhythm with no murmur, gallop or rub. Abdomen: Soft, nontender with normal bowel sounds. Extremities: Bilateral edema, it is really not pitting to a significant extent although her legs are quite heavy. Distal pulses intact. Neurologic: No focal findings. Skin: No rash, ecchymoses or petechiae. Results & Data Vital Signs (Past 12 Hours) Vital Signs Temp Pulse Pulse Resp BP Pulse Ox O2 Del Method 12/16/22 12:03 36.4 C L 81 19 127/70 95 Nasal Cannula 12/16/22 09:07 62 12/16/22 08:13 36.4 C L 71 17 135/80 95 Nasal Cannula 12/16/22 08:12 Nasal Cannula 12/16/22 08:12 Nasal Cannula 12/16/22 03:52 36.4 C L 74 18 122/70 95 Room Air O2 Flow Rate 12/16/22 12:03 2 12/16/22 09:07 12/16/22 08:13 2 12/16/22 08:12 12/16/22 08:12 2 12/16/22 03:52 Laboratory Results Cardiac Enzymes 12/16/22 Range/Units 07:09 Troponin I High Sens 154.8 H* D (0-14) pg/ml Coagulation 12/16/22 Range/Units 07:09 APTT 50.4 H* (21.0-31.0) Seconds CBC 12/16/22 Range/Units 07:09 WBC 11.79 H (4.8-10.8) K/ul RBC 4.20 (4.20-5.40) M/uL Hgb 13.3 (12.0-16.0) g/dl Hct 40.4 (37.0-47.0) % Plt Count 181 (130-400) K/uL Neut # (Auto) 8.25 H (1.40-6.50) K/uL Lymph # (Auto) 2.64 (1.2-3.4) K/uL [place] # (Auto) 0.68 H (0.11-0.59) K/uL Eos # (Auto) 0.09 (0-0.50) K/uL Baso # (Auto) 0.06 (0-0.2) K/uL Comprehensive Metabolic Panel 12/16/22 Range/Units 07:09 Sodium 139 (136-145) mmol/L Potassium 4.3 (3.5-5.1) mmol/L Chloride 105 (98-107) mmol/L Carbon Dioxide 29 (21-32) mmol/L BUN 25 H (6-23) mg/dl Creatinine 1.14 (0.6-1.2) mg/dl Glucose 132 H (70-99(Fasting)) mg/dl Calcium 9.5 (8.6-10.3) mg/dl Intake and Output 12/15/22 12/16/22 12/16/22 22:59 06:59 14:59 Intake Total 140 / 1506.333 750 / 1506.333 Balance 140 / 1506.333 750 / 1506.333 Intake: IV 500 / 756.333 Heparin Sodium/Dextrose 25,000 500 / 756.333 units In 500 ml @ 1,600 UNITS/ HR 32 mls/hr IV .[id number] [facility] Rx #:[id number] Oral 140 / 750 250 / 750 Other: Weight 138.5 kg Weight Measurement Method Built in [facility] Diagnostic Findings An echocardiogram shows normal left ventricular size and function with no wall motion abnormalities. The right ventricle is moderately dilated with reduced right ventricular systolic function. Telemetry: Sinus rhythm, rate 60 to 80 bpm. PG Care Time/CCT Total # of Minutes Spent Total Time Spent with Patient: Total time spent is greater than 50% in coordination of care (as documented) at patient's floor/unit and/or counseling patient: Coding Level of Care Code 21815 SUB INP/OBS CARE 2/35MIN Diagnoses Bilateral pulmonary embolism I26.99 Elevated troponin R77.8 Abnormal electrocardiogram R94.31 Hyperlipidemia E78.5 Hyperlipidemia type: unspecified Hypertension I10 Hypertension type: primary hypertension (4) Hyperlipidemia Hyperlipidemia type: unspecified Qualified Code(s): E78.5 - Hyperlipidemia, unspecified (5) Hypertension Hypertension type: primary hypertension Qualified Code(s): I10 - Essential (primary) hypertension
[2022-12-16] MEDS: ATORVASTATIN 20 MG TAB PO SCH (20:04)
--- NOTE | 2022-12-16 20:51 | Electrocardiogram Report ---
Test Reason : Blood Pressure : / mmHG Vent. Rate : 103 BPM Atrial Rate : 103 BPM P-R Int : 178 ms QRS Dur : 102 ms QT Int : 356 ms P-R-T Axes : 000 -28 046 degrees QTc Int : 466 ms Sinus tachycardia Low voltage QRS Incomplete right bundle branch block Inferior infarct (cited on or before 14-DEC-2022) Cannot rule out Anteroseptal infarct (cited on or before 14-DEC-2022) Abnormal ECG When compared with ECG of 14-DEC-2022 12:46, Questionable change in initial forces of Septal leads Confirmed by Deyvi Gaffney ([id number]) on 12/16/2022 8:51:19 PM Referred By: REFERRED SELF Confirmed By:Deyvi Gaffney
[2022-12-17 05:29] LABS: Basophils # (auto) 0.07 K/uL (0-0.2); Basophils % (auto) 0.7 %; Eosinophils # (auto) 0.25 K/uL (0-0.50); Eosinophils % (auto) 2.7 %; Hematocrit (blood only) 40.5 % (37.0-47.0); Hemoglobin 13.5 g/dl (12.0-16.0); Immature Granulocytes # (auto) 0.08 K/uL (0.01-0.20); Immature Granulocytes % (auto) 0.8 %; Lymphocytes # (auto) 2.78 K/uL (1.2-3.4); Lymphocytes % (auto) 29.5 %; Mean Corpuscular Hemoglobin 31.5 pg (25.0-34.0); Mean Corpuscular Hgb Conc 33.3 g/dL (32.0-36.0); Mean Corpuscular Volume 94.4 fL (80.0-100.0); Mean Platelet Volume 11.2 fL (9.4-12.4); Monocytes # (auto) 0.59 K/uL (0.11-0.59); Monocytes % (auto) 6.3 %; Neutrophils # (auto) 5.65 K/uL (1.40-6.50); Platelet Count 176 K/uL (130-400); RDW Coefficient of Variation 13.1 % (11.5-14.5); RDW Standard Deviation 44.6 fL (36.4-46.3); Red Blood Count 4.29 M/uL (4.20-5.40); White Blood Count 9.42 K/ul (4.8-10.8)
[2022-12-17 05:38] LABS: BUN Creatinine Ratio 23.4 (10-20); Calcium 9.2 mg/dl (8.6-10.3); Creatinine Clr Calc Pharmacy 62.9 ml/min; Est GFR (African American) 56.7 ml/min; Est GFR (Non-African American) 48.9 ml/min; Potassium 3.9 mmol/L (3.5-5.1)
[2022-12-17 06:12] LABS: Partial Thromboplastin Ratio 1.8
[2022-12-17 06:50] LABS: Partial Thromboplastin Time 50.5 Seconds (21.0-31.0)
[2022-12-17] MEDS ORDERED: RIVAROXABAN 15 MG TAB PO SCH (09:00)
[2022-12-17] MEDS: POTASSIUM CHLORIDE 10 MEQ TABCR PO SCH (09:04)
[2022-12-17] MEDS: CALCIUM CARBONATE 1250MG TAB PO SCH (09:04)
[2022-12-17] MEDS: FUROSEMIDE 40 MG TAB PO SCH (09:05)
[2022-12-17] MEDS: HEPARIN SODIUM/DEXTROSE 25,000 UNITS/500 ML BAG IV SCH (09:07)
[2022-12-17] MEDS: lisinopril 5 MG TAB PO SCH (10:03)
--- NOTE | 2022-12-17 10:58 | Discharge Summary ---
Date of Service December 17, 2022 Admission HPI Per Admitting Provider Tangela Higginbotham is a 71 year old female who presents to the ER with shortness of breath. Symptom of shortness of breath on exertion started on Monday (2 days previously), first noticed when she got up to walk to the ba throom. Not getting any better or worse since then. Outpatient CXR was concerning for pericardia effusion therefore she was sent to the ER for further evaluation. No baseline oxygen. No leg pain. No long haul flights or car journeys. No recent surgeries. No chest pain, presyncope or syncope. No personal or family history of blood clots. CT for PE in the ER was concerning for extensive bilateral pulmonary emboli. She was started on IV heparin and referred to medicine for admission and ongoing management of this. Principal Diagnosis Multiple bilateral PE, acute hypoxic respiratory failure, left lower extremity DVT, elevated troponin with abnormal EKG Discharge Exam General-alert and oriented x3, no fevers, no chills. Obese HEENT-head atraumatic and normocephalic, pupils equal and reactive to light, extraocular muscles intact Neck-no lymphadenopathy or thyromegaly, trachea midline Chest-clear to auscultation percussion. No rales wheezing or rhonchi Cardiac-regular rate and rhythm, normal S1 and S2 Abdomen-normal bowel sounds, nontender, no hepatosplenomegaly Extremities-chronic appearing mild edema bilateral lower extremities Neuro-cranial nerves II through XII intact, motor and sensory function within normal limits, strength symmetrical , no focal deficits Psych-normal affect, normal mood Discharge Data Allergies Allergy/AdvReac Type Severity Reaction Status Date / Time shellfish derived AdvReac Intermediate Sneezing Verified 12/14/22 15:31 Consultations 12/14/22 15:04 ED Decision to Admit Stat 12/15/22 08:08 Consult Cardiology Routine Ordered Studies 12/14/22 14:17 CT angio chest PE protocol Stat 12/14/22 16:57 US venous doppler LE Routine Hospital Course (1) Bilateral pulmonary embolism: No acute distress. Treated while hospitalized with a heparin drip and converted to Xarelto 15 mg twice a day at discharge. Most likely provoked from left lower extremity DVT embolization. (2) Abnormal chest CT: 1.2 cm intermediate nodule. Follow up CT in 6 months recommended. (3) Elevated troponin: Suspect heart strain secondary to pulmonary emboli. Cardiology consultation appreciated. Cardiac echo reveals normal left ventricular function with no regional wall motion abnormalities. Outpatient stress testing recommended. (4) Hyperlipidemia: Continue atorvastatin (5) Hypertension: Lisinopril has been restarted (6) Chronic back pain: Pain control measures. No intervention needed at this time (7) Left leg DVT: Treated while hospitalized with a heparin drip. Converted to Xarelto at discharge (8) Acute respiratory failure with hypoxia: Due to pulmonary emboli. She is currently requiring 2 L oxygen per nasal cannula. It appears she will need home oxygen for a while. Two-step has been ordered. Plan VTE Prophylaxis - heparin IV currently Disposition -Home today, December 17, on oxygen and Xarelto Total Time Total Time Spent Total Time Spent (In Minutes): 40 minutes Discharge Plan Discharge Items Patient Disposition: Home - Self-Care Reason For Visit: EXTENSIVE BILATERAL PULMONARY EMBOLI Discharge Diagnosis: Left lower extremity DVT, multiple bilateral pulmonary emboli, acute hypoxic respiratory failure, elevated troponin with abnormal EKG without acute coronary syndrome Activity: Resume your previous activity Non-emergency contact: Primary Care Provider Call non-emergency contact if: you have any medication questions and your symptoms worsen Follow-up/Referrals: Mann Moon PA-C [Primary Care Provider] - Diet: Regular and Heart Healthy Addtl Attending Provider Instructions: Wear oxygen at all times for now. This will eventually be weaned off. Take Xarelto 15 mg twice a day on a regular basis. After 3 weeks, this dosage will be changed to 20 mg once a day by your PCP Pending Studies at Discharge: No Stand-Alone Forms: My [facility], Smoking Cessation Medications and DC Order Prescriptions: New Xarelto 15 mg Tablet 15 mg PO BID Qty: 42 0RF Continued furosemide [Lasix] 40 mg tablet 40 mg PO QAM potassium chloride 10 mEq tablet extended release 10 meq PO QAM calcium carbonate-vitamin D3 [Os-Lam 500 + D3] 500 mg-15 mcg (600 unit) tablet 1 tab PO BID lisinopril 5 mg tablet 5 mg PO QAM atorvastatin 20 mg tablet 20 mg PO QPM ibuprofen 200 mg Tablet 400 - 600 mg PO Q6H PRN (Reason: Pain) Discharge Orders: Discharge Order (Routine); Ordered 12/17/22 Ordered By: Willem Alvarenga Admission Data Admit Date/Time: 12/14/22 16:34 Attending Provider: Willem Alvarenga Admit Provider: Scotty Rawls Primary Care Provider: Mann Moon Other Providers: Scotty Rawls ; Huey Simmons ; Jewel Peters ; Paolo Nieto ; Leland Christian ; Deyvi Gaffney ; Mykel Pascual Jr ; Abdoul Garcia ; Kim Valerio ; Violet Hilario ; Adelfo Saul ; Conrado Quinteros ; Willem Villanueva ; Sandra Padilla ; Ivette Sams ; Ho Eldridge ; Herbert Issa ; Leland Márquez V. Coding Level of Care Code 85297 INP/OBS DISCH >30 MIN Diagnoses Bilateral pulmonary embolism I26.[address] R93.89 Elevated troponin R77.8 Hyperlipidemia E78.5 Hyperlipidemia type: unspecified Hypertension I10 Hypertension type: primary hypertension Chronic back pain M54.9; G89.29 Left leg DVT I82.402 Acute respiratory failure with hypoxia J96.01
== END 2022-12-17 13:49 | disposition home or self-care (01) | DRG 299 ==
LOC: ED 12:33 → 4W 16:34 → SUATTDRO 16:34 → 4W 20:55